=== PATIENT | female | born 1965 | race Caucasian/White ===

== ENCOUNTER 2017-05-12 18:23 | Emergency (ER) | payer OTHER, BC ==
[2017-05-12 18:34] VITALS: BP 169/73
--- NOTE | 2017-05-12 18:47 | UC ---
Respiratory Complaint HPI - HPI Summary HPI Summary: 52 year old female presents with complains of cough, fever, and chills. - History of Current Complaint Chief Complaint: UCGeneralIllness Stated Complaint: FEVER, COUGH, CHILLS, HEADACHE, AND NAUSEA Time Seen by Provider: 05/12/17 18:46 Hx Obtained From: Patient Hx Last Menstrual Period: 05/03/17 Onset/Duration: Sudden Onset Severity Initially: Moderate Severity Currently: Moderate Character: Cough: Nonproductive - Allergies/Home Medications Allergies/Adverse Reactions: Allergies Allergy/AdvReac Type Severity Reaction Status Date / Time No Known Allergies Allergy Verified 05/12/17 18:34 Home Medications: Home Medications Ferrous Sulfate TAB* 325 mg PO DAILY 05/12/17 [History Confirmed 05/12/17] Levothyroxine TAB* [Synthroid 150 MCG TAB*] 150 mcg PO DAILY 05/12/17 [History Confirmed 05/12/17] Penicillin VK TAB* [Penicillin VK 250 mg Tab*] 250 mg PO QID 05/12/17 [History Confirmed 05/12/17] PMH/Surg Hx/FS Hx/Imm Hx Previously Healthy: Yes - Surgical History Surgical History: Yes Surgery Procedure, Year, and Place: PARTIAL THYROID. RT KNEE LAPAROSCOPIC. GALLBLADDER. APPENDIX - Social History Alcohol Use: None Substance Use Type: None Smoking Status (MU): Never Smoked Tobacco Review of Systems Constitutional: Fever, Chills Skin: Negative Eyes: Negative ENT: Negative Respiratory: Cough Cardiovascular: Negative Gastrointestinal: Negative Genitourinary: Negative Motor: Negative Neurovascular: Negative Musculoskeletal: Negative Neurological: Negative Psychological: Negative All Other Systems Reviewed And Are Negative: Yes Physical Exam Triage Information Reviewed: Yes Vital Signs: Initial Vital Signs Temp 38.4 C 05/12/17 18:26 Pulse 95 05/12/17 18:26 Resp 20 05/12/17 18:26 BP 169/73 05/12/17 18:26 Pulse Ox 99 05/12/17 18:26 Vital Signs Reviewed: Yes Eye Exam: Normal ENT Exam: Normal Dental Exam: Normal Neck exam: Normal Neck: Positive: 1 Respiratory: Positive: Rhonchi, Wheezing Cardiovascular Exam: Normal Abdominal Exam: Normal Musculoskeletal Exam: Normal Neurological Exam: Normal Psychological Exam: Normal Skin Exam: Normal UC Diagnostic Evaluation - Laboratory O2 Sat by Pulse Oximetry: 99 Respiratory Course/Dx - Differential Dx/Diagnosis Provider Diagnoses: pneumonia Discharge - Discharge Plan Condition: Stable Disposition: HOME Prescriptions: Albuterol HFA INHALER* [Ventolin HFA Inhaler*] 1 puff INH Q6H PRN #1 mdi PRN Reason: Wheezing Cefdinir [Cefdinir 300 MG CAP] 300 mg PO Q12H #20 cap Methylprednisolone [Medrol Dosepak 4 MG*] 4 mg PO .SEE NIMO INSTRUCTION #21 tab guaiFENesin/CODIEN 100MG-10MG* [Robitussin AC 100Mg-10Mg*] 5 ml PO Q6H PRN #120 ml MDD 20 ML PRN Reason: Cough Patient Education Materials: Pneumonia (ED) Referrals: Souleymane Rodriguez MD [Primary Care Provider] -
--- NOTE | 2017-05-12 19:28 | RAD ---
INDICATION: Cough COMPARISON: September 24, 2015 TECHNIQUE: PA and lateral dual-energy views were obtained. FINDINGS: Bones/Soft Tissues: There are no acute bony findings. Cardiomediastinal: The cardiomediastinal silhouette is normal. Lungs: There is a left lower lobe infiltrate with consolidation. The remaining lung traylor are clear. Pleura: There are no pleural effusions. Other: None IMPRESSION: LEFT LOWER LOBE INFILTRATE.
== END 2017-05-12 19:45 | disposition home or self-care (01) ==
LOC: UCEAST 18:23
DX: J18.9 Pneumonia, unspecified organism (principal); Z90.49 Acquired absence of other specified parts of digestive tract; E89.0 Postprocedural hypothyroidism
CPT/HCPCS: 71020; 87502; 99212; G0463

== ENCOUNTER 2019-06-24 05:34 | Day surgery (SDC) | payer OTHER, BC ==
[~2019-06-24 05:34] MED LIST: Buffered Lidocaine 1% SYRIN* 1 ML/SYRINGE INTRADERM ONE
[2019-06-24] MEDS ORDERED: Lactated Ringers 1000 ML Bag* 1,000 ML IV SCH (06:00)
[2019-06-24] MEDS ORDERED: Acetaminophen TAB* 325 MG PO ONE (06:00)
[2019-06-24] MEDS ORDERED: Acetaminophen TAB* 325 MG ONE (06:15)
[2019-06-24] MEDS ORDERED: Buffered Lidocaine 1% SYRIN* 1 ML/SYRINGE INTRADERM ONE (06:15)
[2019-06-24] MEDS ORDERED: ceFAZolin 2 GM PREMIX in ORs 2 GM/50 ML BAG ONE (06:15)
[2019-06-24] MEDS ORDERED: oxyCODONE TAB* 5 MG TAB PO PRN (06:56)
[2019-06-24] MEDS ORDERED: PROCHLORPERAZINE INJ 5 MG/ML 2 ML VIAL IV PRN (06:56)
[2019-06-24] MEDS ORDERED: Naloxone* 0.4 MG/ML 1 ML VIAL IV PRN (06:56)
[2019-06-24] MEDS ORDERED: Ondansetron INJ* 2 MG/ML VIAL IV PRN (06:56)
[2019-06-24] MEDS ORDERED: diPHENhydraMINE IV* 50 MG/ML 1 ml VIAL (BENADRYL) IV PRN (06:56)
[2019-06-24] MEDS ORDERED: Propofol* 10 MG/ML 20 ML BTL ONE (07:04)
[2019-06-24] MEDS ORDERED: Rocuronium* 10 MG/ML VIAL ONE (07:04)
[2019-06-24] MEDS ORDERED: Lidocaine 2% PF * 5 ML VIAL ONE ×2 (07:04→07:08)
[2019-06-24] MEDS ORDERED: fentaNYL* 50 MCG/ML 5 ML VIAL (250 MCG VIAL) ONE (07:04)
[2019-06-24] MEDS ORDERED: Midazolam* 1 MG/ML 2 ML VIAL (2 MG) ONE (07:04)
[2019-06-24] MEDS ORDERED: Bupivacaine 0.5%* 50 ML MDV VIAL ONE (07:09)
[2019-06-24] MEDS ORDERED: Dexamethasone IV* 4 MG/ML 1 ML (4 MG) ONE (07:53)
[2019-06-24] MEDS ORDERED: HYDROmorphone INJ1* 1 MG/ML SYRINGE ONE ×2 (08:00→09:23)
[2019-06-24] MEDS ORDERED: Ketorolac INJ* 30 MG/ML 1 ML VIAL ONE (08:01)
[2019-06-24] MEDS ORDERED: Ondansetron INJ* 2 MG/ML VIAL ONE (08:01)
[2019-06-24] MEDS ORDERED: Neostigmine Methylsulfate* 1 MG/ML 10 ML VIAL (1 mg/ml) ONE (08:02)
[2019-06-24] MEDS ORDERED: Glycopyrrolate IV* 0.2 MG/ML 1 ML VIAL ONE (08:03)
[2019-06-24] MEDS: HYDROmorphone INJ1* 1 MG/ML SYRINGE IV PRN ×4 (09:24→09:55)
[2019-06-24 10:55] VITALS: BP 163/84
--- NOTE | 2019-06-24 20:40 | OP ---
DATE OF OPERATION: 06/24/19 - [facility] DATE OF : 61 ATTENDING SURGEON: Max Croft MD DRY JANITOR: ANN Choudhury PRE-OP DIAGNOSIS: Chronic insertional Achilles tendinosis. POST-OP DIAGNOSIS: Chronic insertional Achilles tendinosis. OPERATIVE PROCEDURES: Advancement of right tendo Achilles with V lengthening and calcaneal resection. DESCRIPTION OF PROCEDURE: The patient was in the prone position with the tourniquet inflated at the thigh. We made a 10 cm longitudinal incision medial to the Achilles, but almost in the midline. At the distal portion, we exposed around the insertion of the Achilles and reflected this proximally. The posterior calcaneal resection was performed with a micro sagittal blade to give a fresh cancellous bed. The tendon itself had some slight thickening and nodularity along the anterior distal portion once this was debrided with a 15 blade. We performed a V lengthening proximally over the Achilles tendon, laid over the soleus by creating an inverted V 6 cm on each limb. This allowed lengthening of at least 2 to 3 cm. We used the SpeedBridge to reattach the tendon to the posterior calcaneus and using a presuture to tie over the top of the Achilles. Good firm fixation was obtained. By dissecting laterally, we were able to expose about 5 cm of the peroneal brevis and longus sheath by opening up the fascia, but not disrupting the retinaculum. The tendon at this level appear to be intact. There was no extra fluid. We then irrigated thoroughly closing with 2-0 Monocryl and sheila for the skin, some nylon distally. Compression dressing plaster splint was applied. [id number]/[facility] #: [id number] [facility] CENTERShayla
== END 2019-06-24 11:45 | disposition home or self-care (01) ==
LOC: OR 05:34
PROVIDERS: ATTEND Orthopaedic Surgery
DX: M76.61 Achilles tendinitis, right leg (principal); M77.31 Calcaneal spur, right foot; E03.9 Hypothyroidism, unspecified
CPT/HCPCS: 81025; 88304; 88311; A9270-GY; C1713; J0690; J1100; J1170; J1885; J2250; J2405; J2704; J2710; J3010; J3490